=== PATIENT | female | born 1995 | race Caucasian/White ===

== ENCOUNTER 2017-04-25 16:52 | Emergency (ER) | payer BC, OTHER ==
[2017-04-25 17:54] VITALS: TEMP 99.2; O2SAT 98; BMI 34.7
--- NOTE | 2017-04-25 18:37 | ED PDOC ---
Arrival/HPI - General Historian: Patient - History of Present Illness Time/Duration: > week Symptom Course: Intermittent Context: Home - General Chief Complaint: Abdominal Pain Time Seen by Provider: 04/25/17 17:37 - History of Present Illness Narrative History of Present Illness (Text): 04/25/17 18:32 21 yo female with PMH of asthma presented to emergency department with abdominal pain. Patient states the pain started 2 weeks ago. She states that its a constant pain, located on her lower left quadrant. It is temporarily improved with ibuprofen medication. She states the pain is worse when she is laying on her left side. She also reports nasal congestion and sore throat for which she recently received a prescription for antibiotics. She also report increase urinary frequency, denies dysuria, chest pain. PMD: (Adriana Correia) Past Medical History - Provider Review Nursing Documentation Reviewed: Yes - Infectious Disease Hx of Infectious Diseases: None - Tetanus Immunization Tetanus Immunization: Unknown - Cardiac Hx Cardiac Disorders: No - Pulmonary Hx Respiratory Disorders: Yes Hx Asthma: Yes Hx Bronchitis: Yes - Neurological Hx Neurological Disorder: No - HEENT Hx HEENT Disorder: No - Renal Hx Renal Disorder: No - Endocrine/Metabolic Hx Endocrine Disorders: No - Hematological/Oncological Hx Blood Disorders: No - Integumentary Hx Dermatological Disorder: No - Musculoskeletal/Rheumatological Hx Musculoskeletal Disorders: No - Gastrointestinal Hx Gastrointestinal Disorders: No - Genitourinary/Gynecological Hx Genitourinary Disorders: Yes Other/Comment: bladder infection - Psychiatric Hx Psychophysiologic Disorder: No Hx Substance Use: No - Surgical History Other/Comment: WISDOM TOOTH EXRACTION - Anesthesia Hx Anesthesia: No Hx Anesthesia Reactions: No Hx Malignant Hyperthermia: No - Suicidal Assessment Feels Threatened In Home Enviroment: No Family/Social History - Physician Review Nursing Documentation Reviewed: Yes Family/Social History: No Known Family HX Smoking Status: Current Some Days Smoker Hx Alcohol Use: Yes Hx Substance Use: No Substance used: MARIJUANA Allergies/Home Meds Allergies/Adverse Reactions: Allergies shrimp Allergy (Verified 04/25/17 17:54) RASH Home Medications: Home Meds Medication Instructions Recorded Confirmed Norethindrone AC-Eth Estradiol 1 tab PO DAILY 04/25/17 04/25/17 [Loestrin 21 1-20 Tablet] Review of Systems - Review of Systems Constitutional: Normal. absent: Fatigue Eyes: Normal. absent: Vision Changes ENT: Sore Throat, Rhinorrhea Respiratory: Normal. absent: SOB, Cough Cardiovascular: Normal. absent: Chest Pain, Syncope Gastrointestinal: Abdominal Pain, Nausea. absent: Constipation, Diarrhea, Vomiting Genitourinary Female: Normal, Frequency. absent: Dysuria Musculoskeletal: Normal. absent: Arthralgias, Myalgias Skin: Normal. absent: Rash, Pruritis Neurological: Normal, Headache. absent: Dizziness Endocrine: Normal. absent: Diaphoresis Hemo/Lymphatic: Normal. absent: Easy Bleeding, Easy Bruising Psychiatric: Normal Physical Exam - Systems Exam Head: Present: Atraumatic, Normocephalic Pupils: Present: PERRL. No: Non-Reactive, Pinpoint Extroacular Muscles: Present: EOMI. No: Entrapment Conjunctiva: Present: Normal Mouth: Present: Moist Mucous Membranes Neck: Present: Normal Range of Motion Respiratory/Chest: Present: Clear to Auscultation, Good Air Exchange. No: Respiratory Distress, Accessory Muscle Use, Wheezes, Rales, Rhonchi, Tachypneic Cardiovascular: Present: Regular Rate and Rhythm, Normal S1, S2. No: Murmurs, Tachycardic, Bradycardic Abdomen: Present: Tenderness (mild ), Normal Bowel Sounds. No: Distention, Peritoneal Signs Back: Present: Normal Inspection. No: CVA Tenderness, Midline Tenderness, Paraspinal Tenderness Upper Extremity: Present: Normal Inspection. No: Cyanosis, Edema, Tenderness, Swelling Lower Extremity: Present: Normal Inspection. No: Edema, CALF TENDERNESS Neurological: Present: GCS=15, CN II-XII Intact, Speech Normal Skin: Present: Warm, Dry, Normal Color. No: Rashes, Diaphoretic Psychiatric: Present: Alert, Oriented x 3, Normal Insight, Normal Concentration Medical Decision Making ED Course and Treatment: 04/25/17 18:41 Impression: 21 yo female with PMH of asthma presented to emergency department with abdominal pain. Differential Diagnosis included but are not limited to: - UTI, Plan: - Urinalysis - urine test - Reassess and disposition Progress Notes: 04/25/17 21:18 - Patient states pain has improved. All lab results were discussed with patient. She is to follow up with PMD for elevated LFTs. She was instructed to follow up with PMD in 1-2 days. Discharge plan was discussed with patient, she is in agreement. All questions answered. (Adriana Correia) Patient seen and examined with resident. Came up with treatment and disposition plan with resident. On reevaluation, patient reports that she feels much better and would like to be discharged home. Patient's repeat abdominal exam is soft, nontender, non distended with positive bowel sounds in all 4 quadrants and no peritoneal signs. Patient is tolerating PO without any difficulty. Pt states she understands to return to the ER right away for new or worsening symptoms or for inability to f/u with PMD or specialist as instructed. Patient states that she fully agrees with and understands discharge instructions. States that she agrees with the plan and disposition. Verbalized and repeated discharge instructions and plan. I have given the patient opportunity to ask any additional questions. (Petar Ramirez) - Lab Interpretations Lab Results: 04/25/17 20:35 04/25/17 20:35 Lab Results 04/25/17 20:35: Sodium 138, Potassium 4.4, Chloride 104, Carbon Dioxide 25, Anion Gap 13, BUN 11, Creatinine 0.8, Est GFR ( Amer) > 60, Est GFR (Non- Af Amer) > 60, Random Glucose 85, Calcium 9.0, Total Bilirubin 0.7, AST 82 H, ALT 130 H, Alkaline Phosphatase 79, Total Protein 7.3, Albumin 3.9, Globulin 3.5 , Albumin/Globulin Ratio 1.1, Lipase 57 04/25/17 20:35: WBC 9.0, RBC 4.40, Hgb 12.7, Hct 37.5, MCV 85.2, MCH 28.9, MCHC 33.9, RDW 12.6, Plt Count 209, MPV 10.8, Gran % 30.8 L, Lymph % (Auto) 58.7 H, [place] % (Auto) 8.7 H, Eos % (Auto) 0.9 L, Baso % (Auto) 0.9, Gran # 2.76, Lymph # 5.3 H, [place] # 0.8 H, Eos # 0.1, Baso # 0.08 04/25/17 19:11: Urine Color Yellow, Urine Appearance Clear, Urine pH 6.0, Ur Specific [place] 1.025, Urine Protein Negative, Urine Glucose (UA) Negative, Urine Ketones Negative, Urine Blood Trace-intact H, Urine Nitrate Negative, Urine Bilirubin Negative, Urine Urobilinogen 1.0 H, Ur Leukocyte Esterase Trace H, Urine RBC 0 - 2, Urine WBC 15 - 20, Ur Epithelial Cells 10 - 12, Urine Bacteria Few - Medication Orders Current Medication Orders: Discontinued Medications Ketorolac Tromethamine (Toradol) 30 mg IVP STAT STA Stop: 04/25/17 19:45 Last Admin: 04/25/17 20:57 Dose: 30 mg Disposition/Present on Arrival - Present on Arrival Any Indicators Present on Arrival: No History of DVT/PE: No History of Uncontrolled Diabetes: No Urinary Catheter: No History of Decub. Ulcer: No History Surgical Site Infection Following: None - Disposition Have Diagnosis and Disposition been Completed?: Yes Disposition Time: 21:15 Patient Plan: Discharge - Disposition Diagnosis: UTI (urinary tract infection) Disposition: HOME/ ROUTINE Condition: GOOD Discharge Instructions (ExitCare): Urinary Tract Infection in Women (ED) Additional Instructions: Yany Nunn, thank you for letting us take care of you today. Your provider was Dr. Correia and Dr. Ramirez. You were treated for UTI. The emergency medical care you received today was directed at your acute symptoms. If you were prescribed any medication, please fill it and take as directed. It may take several days for your symptoms to resolve. Return to the Emergency Department if your symptoms worsen, do not improve, or if you have any other problems. Please contact your doctor or call one of the physicians/clinics you have been referred to that are listed on the Patient Visit Information form that is included in your discharge packet. Bring any paperwork you were given at discharge with you along with any medications you are taking to your follow up visit. Our treatment cannot replace ongoing medical care by a primary care provider (PCP) outside of the emergency department. Thank you for [facility] the [facility] to [facility] of your care today. If you had a blood, urine, or wound culture: It will take several days for the results, if any change in treatment is needed we will contact you. Prescriptions: Ibuprofen [Motrin] 600 mg PO Q6 PRN #20 tab PRN Reason: Pain, Moderate (4-7) Nitrofurantoin Macrocrystals [Macrobid] 100 mg PO BID #14 cap Referrals: Jefry Jarrell, [Primary Care Provider] - Follow up with primary Maryjo Horn MD [Staff Provider] - Follow up with primary
[2017-04-25 19:46] LABS: URINE APPEARANCE CLEAR (CLEAR); URINE BILIRUBIN NEGATIVE (NEGATIVE); URINE BLOOD TRACE-INTACT (NEGATIVE); URINE COLOR YELLOW (YELLOW); URINE GLUCOSE (UA) NEGATIVE (NEGATIVE); URINE KETONE NEGATIVE (NEGATIVE); URINE LEUKOCYTE ESTERASE TRACE Leu/uL (NEGATIVE); URINE PROTEIN NEGATIVE mg/dL (<30 mg/dL)
[2017-04-25 19:50] LABS: URINE BACTERIA FEW (NEG); URINE RBC 0 - 2 /hpf (0-2); URINE WBC 15 - 20 /hpf (0-6)
[2017-04-25 20:43] LABS: ADD MANUAL DIFF? NO
[2017-04-25 20:49] LABS: BASO # 0.08 K/mm3 (0.0-2.0); BASO % 0.9 % (0.0-3.0); EOS # 0.1 (0.0-0.7); EOS % 0.9 % (1.5-5.0); GRAN # 2.76 (1.4-6.5); GRAN % 30.8 % (50.0-68.0); HEMATOCRIT 37.5 % (36.0-48.0); LYMPH # 5.3 (1.2-3.4); LYMPH % 58.7 % (22.0-35.0); MEAN CELL VOLUME 85.2 fL (80.0-105.0); MEAN CORPUSCULAR HEMOGLOBIN 28.9 pg (25.0-35.0); MEAN CORPUSCULAR HGB CONC 33.9 g/dl (31.0-37.0); MEAN PLATELET VOLUME 10.8 fl (7.0-11.0); MONO # 0.8 (0.1-0.6); MONO % 8.7 % (1.0-6.0); PLATELET COUNT 209 10^3/uL (120.0-450.0); RED CELL DISTRIBUTION WIDTH 12.6 % (11.5-14.5)
[2017-04-25 21:00] LABS: ALB/GLOB RATIO 1.1 (1.1-1.8); ALKALINE PHOSPHATASE 79 U/L (38-133); ALT/SGPT 130 U/L (7-56); AST/SGOT 82 U/L (15-39); BILIRUBIN,TOTAL 0.7 mg/dL (0.2-1.3); BLOOD UREA NITROGEN 11 mg/dL (7-21); CARBON DIOXIDE 25 mmol/L (21-33); CHLORIDE 104 mmol/L (98-107); GFR AFRICAN-AMERICAN > 60; GLUCOSE,RANDOM 85 mg/dL (70-110); LIPASE 57 U/L (23-300); POTASSIUM 4.4 mmol/L (3.6-5.0); SODIUM 138 mmol/L (132-148); TOTAL PROTEIN 7.3 g/dL (5.8-8.3)
[2017-04-25 21:38] VITALS: BP 130/82; PULSE 79; RESP 16
== END 2017-04-25 21:38 | disposition home or self-care (01) ==
LOC: ED 16:52
DX: N39.0 Urinary tract infection, site not specified (principal)
CPT/HCPCS: 80053; 81001; 83690; 85025; 87086; 96374; 99282; J1885

== ENCOUNTER 2017-11-12 12:21 | Emergency (ER) | payer BC, OTHER ==
[2017-11-12 12:23] VITALS: BMI 34.7
[2017-11-12 12:33] VITALS: TEMP 98.6
--- NOTE | 2017-11-12 13:15 | ED PDOC ---
Arrival/HPI - General Chief Complaint: Trauma Time Seen by Provider: 11/12/17 13:11 - History of Present Illness Narrative History of Present Illness (Text): 11/12/17 13:12 22 y/o female, pmh including chronic rt. ankle pain, nkda, c/o rt. ankle pain and left knee injury s/p fall on the wet step yesterday x 2 days. Pt. was walking down the stair, twisted the rt. ankle and landed on the left knee, no numbness or tingling, no calf pain, no palpitation, no rash, no night sweat, no dizziness, no chest pain or shortness of breath, no head/neck/back/chest/ abdominal injury, no other medical or psychological complaints. Past Medical History - Provider Review Nursing Documentation Reviewed: Yes - Infectious Disease Hx of Infectious Diseases: None - Tetanus Immunization Tetanus Immunization: Unknown - Cardiac Hx Cardiac Disorders: No - Pulmonary Hx Respiratory Disorders: Yes Hx Asthma: Yes Hx Bronchitis: Yes - Neurological Hx Neurological Disorder: No - HEENT Hx HEENT Disorder: No - Renal Hx Renal Disorder: No - Endocrine/Metabolic Hx Endocrine Disorders: No - Hematological/Oncological Hx Blood Disorders: No - Integumentary Hx Dermatological Disorder: No - Musculoskeletal/Rheumatological Hx Musculoskeletal Disorders: No - Gastrointestinal Hx Gastrointestinal Disorders: No - Genitourinary/Gynecological Hx Genitourinary Disorders: Yes Other/Comment: bladder infection - Psychiatric Hx Psychophysiologic Disorder: No Hx Substance Use: No - Surgical History Other/Comment: WISDOM TOOTH EXRACTION - Anesthesia Hx Anesthesia: Yes Hx Anesthesia Reactions: No Hx Malignant Hyperthermia: No - Suicidal Assessment Feels Threatened In Home Enviroment: No Family/Social History - Physician Review Nursing Documentation Reviewed: Yes Family/Social History: Unknown Family HX Smoking Status: Current Some Days Smoker Hx Alcohol Use: Yes Hx Substance Use: No Substance used: MARIJUANA Allergies/Home Meds Allergies/Adverse Reactions: Allergies shrimp Allergy (Verified 04/25/17 17:54) RASH seafood Allergy (Uncoded 11/12/17 12:29) RASH Home Medications: Home Meds Medication Instructions Recorded Confirmed Norethindrone AC-Eth Estradiol 1 tab PO DAILY 04/25/17 11/12/17 [Loestrin 21 1-20 Tablet] Review of Systems - Review of Systems Constitutional: absent: Fatigue, Fevers Eyes: absent: Vision Changes ENT: absent: Hearing Changes Respiratory: absent: SOB, Cough Cardiovascular: absent: Chest Pain Gastrointestinal: absent: Abdominal Pain, Nausea, Vomiting Musculoskeletal: Arthralgias, Myalgias. absent: Back Pain, Neck Pain, Joint Swelling Skin: absent: Rash, Pruritis Neurological: absent: Headache, Dizziness Psychiatric: absent: Anxiety, Depression, Suicidal Ideation Physical Exam Vital Signs Reviewed: Yes Vital Signs Temp Pulse Resp BP Pulse Ox 11/12/17 15:09 76 18 118/78 99 11/12/17 12:32 98.6 F 72 16 121/80 98 Temperature: Afebrile Blood Pressure: Normal Pulse: Regular Respiratory Rate: Normal Appearance: Positive for: Well-Appearing, Non-Toxic, Comfortable Pain Distress: Mild Mental Status: Positive for: Alert and Oriented X 3 - Systems Exam Head: Present: Atraumatic, Normocephalic Pupils: Present: PERRL Extroacular Muscles: Present: EOMI Conjunctiva: Present: Normal Mouth: Present: Moist Mucous Membranes Neck: Present: Normal Range of Motion Respiratory/Chest: Present: Clear to Auscultation, Good Air Exchange. No: Respiratory Distress, Accessory Muscle Use Cardiovascular: Present: Regular Rate and Rhythm, Normal S1, S2. No: Murmurs Abdomen: Present: Normal Bowel Sounds. No: Tenderness, Distention, Peritoneal Signs Back: Present: Normal Inspection Upper Extremity: Present: Normal Inspection. No: Cyanosis, Edema Lower Extremity: Present: Normal Inspection, Other (Bilateral lower extremities : +ttp on the lateral malleolus of the rt. ankle with no swelling, no tenderness or swelling of the left knee, negative melida and reina signs, no other bony tenderness or swelling, FROM without limitation, sensation intact, motor 5/5, +DPPT pulses, capillary refill< 2 seconds, neurovascular intact. ). No: Edema Neurological: Present: GCS=15, CN II-XII Intact, Speech Normal Skin: Present: Warm, Dry, Normal Color. No: Rashes Psychiatric: Present: Alert, Oriented x 3, Normal Insight, Normal Concentration Medical Decision Making ED Course and Treatment: 11/12/17 13:15 -Xrays -Tylenol -Observe and reassess 11/12/17 15:02 -Rt. ankle: no fracture or dislocation -Lt. knee xray: no fracture or dislocation -[place] wrap and crutches -Discharge home with naproxen, milton wrap, crutches, follow up with your own pmd and orthopedic within 2 days, return to the ER for any new or worsening signs or symptoms. - RAD Interpretation Radiology Orders: 11/12/17 13:11 ANKLE RIGHT 3 VIEWS ROUTINE [RAD] Stat KNEE WITH PATELLA LEFT 3 VIEW [RAD] Stat Rt. ankle: PROCEDURE: Right Ankle Radiographs. HISTORY: rt. ankle pain s/p inversion injury COMPARISON: None FINDINGS: BONES: Normal. No fracture. JOINTS: Normal. No osteoarthritis. Ankle mortise maintained. Talar dome intact SOFT TISSUES: Normal. OTHER FINDINGS: None. IMPRESSION: Normal right ankle radiographs. *-* Lt. knee xray: PROCEDURE: Left Knee Radiographs. HISTORY: Pain. COMPARISON: None. FINDINGS: BONES: Normal. No fracture. JOINTS: Normal. No osteoarthritis. JOINT EFFUSION: None. OTHER FINDINGS: None. IMPRESSION: Normal radiographs of the left knee. Vest Backer: Radiologist - Medication Orders Current Medication Orders: Discontinued Medications Acetaminophen (Tylenol 325mg Tab) 325 mg PO STAT STA Stop: 11/12/17 13:17 Last Admin: 11/12/17 13:24 Dose: 325 mg [facility] Pain/Vitals Document 11/12/17 13:24 GMD (Rec: 11/12/17 13:25 [facility]MD [facility] Pain Reassessment Is This A Pain ReAssessment? No Sleep Is patient sleeping during reassessment? No Presence of Pain Presence of Pain Yes - PA / TRANSACTION MANAGER / Resident Statement MD/DO has reviewed & agrees with the documentation as recorded. Disposition/Present on Arrival - Present on Arrival Any Indicators Present on Arrival: No History of DVT/PE: No History of Uncontrolled Diabetes: No Urinary Catheter: No History of Decub. Ulcer: No History Surgical Site Infection Following: None - Disposition Have Diagnosis and Disposition been Completed?: Yes Diagnosis: Knee pain, Ankle pain Disposition: HOME/ ROUTINE Disposition Time: 15:03 Patient Plan: Discharge Condition: GOOD Additional Instructions: -Discharge home with naproxen, milton wrap, crutches, follow up with your own pmd and orthopedic within 2 days, return to the ER for any new or worsening signs or symptoms. Prescriptions: Naproxen [Naprosyn] 500 mg PO BID PRN #22 tab PRN Reason: Other Referrals: Jefry Jarrell, [Primary Care Provider] - Follow up with primary Coty Mendez MD [Staff Provider] - Follow up with primary Forms: [employer] (Pashto), WORK NOTE
[2017-11-12 15:10] VITALS: BP 118/78; PULSE 76; RESP 18; O2SAT 99
--- NOTE | 2017-11-12 15:29 | RAD ---
PROCEDURE: Right Ankle Radiographs. HISTORY: rt. ankle pain s/p inversion injury COMPARISON: None FINDINGS: BONES: Normal. No fracture. JOINTS: Normal. No osteoarthritis. Ankle mortise maintained. Talar dome intact SOFT TISSUES: Normal. OTHER FINDINGS: None. IMPRESSION: Normal right ankle radiographs.
--- NOTE | 2017-11-12 15:30 | RAD ---
PROCEDURE: Left Knee Radiographs. HISTORY: Pain. COMPARISON: None. FINDINGS: BONES: Normal. No fracture. JOINTS: Normal. No osteoarthritis. JOINT EFFUSION: None. OTHER FINDINGS: None. IMPRESSION: Normal radiographs of the left knee.
== END 2017-11-12 15:18 | disposition home or self-care (01) ==
LOC: ED 12:21
DX: M25.571 Pain in right ankle and joints of right foot (principal); M25.562 Pain in left knee

== ENCOUNTER 2018-03-06 18:11 | Emergency (ER) | payer BC ==
[2018-03-06 18:37] VITALS: TEMP 99.5; BMI 33.1
[2018-03-06] MEDS ORDERED: Albuterol-Ipratrop 3 mg / 0.5 (3 ml) UD IH STA (19:11)
--- NOTE | 2018-03-06 19:39 | ED PDOC ---
Arrival/HPI - General Chief Complaint: Cough, Cold, Congestion Time Seen by Provider: 03/06/18 19:06 Historian: Patient - History of Present Illness Narrative History of Present Illness (Text): 03/06/18 19:06 A 22 year old female, whose past medical history includes bronchial asthma, presents to the emergency department complaining of nasal congestion, cough, and sore throat. Patient reports having ran out of inhaler medication. Patient denies any fever, chest pain, or any other complaints. No PMD Past Medical History - Provider Review Nursing Documentation Reviewed: Yes - Travel History If Yes, travel location?: [place] - Infectious Disease Hx of Infectious Diseases: None - Tetanus Immunization Tetanus Immunization: Unknown - Cardiac Hx Cardiac Disorders: No - Pulmonary Hx Respiratory Disorders: Yes Hx Asthma: Yes Hx Bronchitis: Yes - Neurological Hx Neurological Disorder: No - HEENT Hx HEENT Disorder: No - Renal Hx Renal Disorder: No - Endocrine/Metabolic Hx Endocrine Disorders: No - Hematological/Oncological Hx Blood Disorders: No - Integumentary Hx Dermatological Disorder: No - Musculoskeletal/Rheumatological Hx Musculoskeletal Disorders: No - Gastrointestinal Hx Gastrointestinal Disorders: No - Genitourinary/Gynecological Hx Genitourinary Disorders: Yes Other/Comment: bladder infection, chlamydia - Psychiatric Hx Psychophysiologic Disorder: No Hx Substance Use: Yes - Surgical History Other/Comment: WISDOM TOOTH EXRACTION - Anesthesia Hx Anesthesia: Yes Hx Anesthesia Reactions: No Hx Malignant Hyperthermia: No - Suicidal Assessment Feels Threatened In Home Enviroment: No Family/Social History - Physician Review Nursing Documentation Reviewed: Yes Family/Social History: No Known Family HX Smoking Status: Light Smoker < 10 Cigarettes Daily Hx Alcohol Use: Yes Frequency of alcohol use: Socially Hx Substance Use: Yes Substance used: MARIJUANA Allergies/Home Meds Allergies/Adverse Reactions: Allergies shrimp Allergy (Verified 03/06/18 18:43) RASH seafood Allergy (Uncoded 03/06/18 18:43) RASH Review of Systems - Physician Review All systems were reviewed & negative as marked: Yes - Review of Systems Constitutional: absent: Fevers ENT: Sore Throat, Sinus Congestion Respiratory: Cough Cardiovascular: absent: Chest Pain Physical Exam Vital Signs Reviewed: Yes Vital Signs Temp Pulse Resp Pulse Ox 03/06/18 18:36 99.5 F 75 20 98 Temperature: Afebrile Pulse: Regular Respiratory Rate: Normal Appearance: Positive for: Well-Appearing Pain Distress: None Mental Status: Positive for: Alert and Oriented X 3 - Systems Exam Head: Present: Atraumatic, Normocephalic Pupils: Present: PERRL Extroacular Muscles: Present: EOMI Conjunctiva: Present: Normal Mouth: Present: Moist Mucous Membranes Nose (Internal): Present: Other ((+) nasal congestion) Neck: Present: Normal Range of Motion Respiratory/Chest: Present: Wheezes (rexpiratory right lung field wheezing) Cardiovascular: Present: Regular Rate and Rhythm, Normal S1, S2. No: Murmurs Abdomen: No: Tenderness, Distention, Peritoneal Signs Back: Present: Normal Inspection Upper Extremity: Present: Normal Inspection. No: Cyanosis, Edema Lower Extremity: Present: Normal Inspection. No: Edema, Cyanosis Neurological: Present: GCS=15, CN II-XII Intact, Speech Normal. No: Other (no focal, motor, or sensory deficits.) Skin: Present: Warm, Dry, Normal Color. No: Rashes Psychiatric: Present: Alert, Oriented x 3, Normal Insight, Normal Concentration Medical Decision Making ED Course and Treatment: 03/06/18 19:11 Impression: 22 year old female with sore throat, cough, and nasal congestion. Plan: -- Duoneb -- Reassess and disposition Progress Notes: - Medication Orders Current Medication Orders: Discontinued Medications Albuterol/Ipratropium (Duoneb 3 Mg/0.5 Mg (3 Ml) Ud) 3 ml IH ONCE STA Stop: 03/06/18 19:12 Last Admin: 03/06/18 19:53 Dose: 3 ml - Scribe Statement The provider has reviewed the documentation as recorded by the Giovanni Worthington Provider Scribe Attestation: All medical record entries made by the Scribkristine were at my direction and personally dictated by me. I have reviewed the chart and agree that the record accurately reflects my personal performance of the history, physical exam, medical decision making, and the department course for this patient. I have also personally directed, reviewed, and agree with the discharge instructions and disposition. Disposition/Present on Arrival - Present on Arrival Any Indicators Present on Arrival: No History of DVT/PE: No History of Uncontrolled Diabetes: No Urinary Catheter: No History of Decub. Ulcer: No History Surgical Site Infection Following: None - Disposition Have Diagnosis and Disposition been Completed?: Yes Diagnosis: URI (upper respiratory infection), Asthma, Pharyngitis Disposition: HOME/ ROUTINE Disposition Time: 19:40 Patient Plan: Discharge Patient Problems: Current Active Problems Problem Status Onset Asthma Acute Pharyngitis Acute URI (upper respiratory infection) Acute Condition: GOOD Discharge Instructions (ExitCare): Asthma, Adult (DC), Sore Throat, Adult (DC) , Viral Upper Respiratory Infection, Adult (DC) Additional Instructions: Medication as prescribed/rest/drink plenty of liquids/follow up with your doctor this week Prescriptions: Fexofenadine/Pseudoephedrine [Roxann-D 12 Hour Tablet] 1 each PO BID PRN #24 tab.er.12h PRN Reason: Nasal Congestion Amoxicillin [Amoxil 500 mg Cap] 500 mg PO TID #30 cap Albuterol Sulfate [Proventil Hfa] 2 puff IH Q4 PRN #1 unit PRN Reason: Wheezing Referrals: PCP,NO [Primary Care Provider] - Follow up with primary Forms: [employer] (Yi)
[2018-03-06 20:04] VITALS: BP 128/67; PULSE 89; RESP 18; O2SAT 99
== END 2018-03-06 20:05 | disposition home or self-care (01) ==
LOC: ED 18:11
DX: J45.909 Unspecified asthma, uncomplicated (principal); J02.9 Acute pharyngitis, unspecified; F17.210 Nicotine dependence, cigarettes, uncomplicated